=== PATIENT | female | born 1940 | race Caucasian/White ===

== ENCOUNTER 2020-07-03 10:19 | Day surgery (SDC) | payer OTHER, MEDICARE ==
[~2020-07-03] VITALS: Ht 157.5 cm; Wt 77.1 kg
--- NOTE | ~2020-07-03 | O ---
[facility] [place] [address] OPERATIVE REPORT Name: JUDITH BEEBE Room #: 150-6 [facility]..#: [id number] Admission: 07/03/20 Attend Phys: Tashi Orellana MD Discharge: Date of : 36 Report #: [id number] THIS REPORT FOR: cc: Cindi Chan MD, Jayne MD White,Tashi Garnica MD ~ CC: Dr. Paresh Orellana DATE OF SERVICE: 07/03/2020 PREOPERATIVE DIAGNOSIS: Basal cell carcinoma of left upper lid and brow. 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 PROCEDURE: Excision of tumor of left upper lid and brow with frozen section, control of margins and myocutaneous flap repair of defect. SURGEON: Tashi Orellana MD. SEEDLING SORTER: None. ANESTHESIA: MAC. COMPLICATIONS: None. INDICATIONS FOR SURGERY: This pleasant 80-year-old woman has a nodular, ulcerative mass in her left upper brow extending into the left upper lid. The lesion has been previously biopsied and thought to be a basal cell carcinoma. She presents today for excision of the lesion with frozen sections and subsequent repair of the ensuing defect. Informed consent was obtained to include but not limited to the potential risk for loss of vision, bleeding, infection, failure to improve the problem, the potential need for further surgery or treatment. DESCRIPTION OF PROCEDURE: The patient was taken to the operating room where 2% Xylocaine with epinephrine mixed with equal parts 0.75% Marcaine with Wydase was administered transcutaneously to the left upper lid, the left brow, the left side of the forehead and the infratemporal fossa. The patient was subsequently prepped and draped in the usual sterile fashion. A fine tip skin marking pen was then utilized to outline the lesion including 1-2 mm of normal appearing tissue around its margins. The incisions were then [address] [address] OPERATIVE REPORT Name: JUDITH BEEBE Room #: 150-6 [facility].#: [id number] Admission: 07/03/20 Attend Phys: Tashi Orellana MD Discharge: Date of : 36 Report #: [id number] made with a 15C blade. The deeper dissection was accomplished with both sharp and blunt dissection. The lesion was then oriented on a drawing for the waiting pathologist. Hemostasis was achieved in the field with diligent pinpoint monopolar cautery. The pathologist snap froze that specimen and found that the margins were clear and she felt that the lesion was a squamous cell carcinoma rather than a basal cell carcinoma. The defect was inspected and a reconstructive flap outlined laterally. Relaxing incision was made with a 15 blade and hemostasis re-achieved. Myocutaneous flap was then advanced and secured with multiple interrupted buried 5-0 Vicryl sutures deep. The subcutaneous structures were closed with additional 5-0 Vicryl sutures deep. The final closure was accomplished with 6-0 plain gut sutures. Bacitracin ophthalmic ointment was then placed on the wound and the patient subsequently transported to the recovery area having tolerated the procedures well with no anesthetic or operative complications being noted. By: [id number] Tashi Orellana MD /nt
[~2020-07-03 10:19] MED LIST: ALLOPURINOL 10100 M2 PO; FIBER THERAPY500 MG PO; LEVOTHYROXINE50 MCG PO; LIPITOR 40 MG T40 M1 PO; METOPROLOL SUCC25 M1 PO; MULTI VITAMIN1 EACH PO; NEURONTIN 300M300 M2 PO; POTASSIUM CHLO10 MEQ PO; PROTONIX40 M2 PO; TRAMADOL 50 MG50 MG PO; TYLENOL EXTRA500 MG PO
[2020-07-03 11:43] VITALS: BP 163/70
--- NOTE | 2020-07-04 18:06 | PATH ---
[facility] [place] [address] [place] [address] PATHOLOGY RPT PROCEDURE Name: JUDITH BEEBE Room #: DEP [facility].#: [id number] Admission: 07/03/20 Date of : 36 Discharge: 07/03/20 Report #: [id number] Path Case #: [id number] [facility] Accession Number: [id number] . 01 Material submitted: . lid - BCCA LEFT UPPER LID AND BROW - FS. Modifiers: left, upper . 01 Clinical history: . 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 02 Frozen section diagnosis: . FROZEN SECTION DIAGNOSIS: (Dr. Neli Craig) . FROZEN SECTION DIAGNOSIS: FSA1. Skin, left upper lid and brow, excision: - Margins free of invasive carcinoma. . These findings are discussed with Dr. Tashi Orellana in OR6 at [facility] and a written report is placed in the patient's chart. . FROZEN SECTION GROSS DESCRIPTION: The specimen is received fresh from the OR labeled with the patient's name, and "BCC left upper lid and brow" consists of an oriented ellipse of skin measuring 2.6 x 1.1 x 0.6 cm. The specimen is oriented as superior, lateral, inferior and medial. The superior to lateral to inferior margin including its deep margin is inked black, the inferior to medial margin is inked blue including the deep margin, and the medial superior margin is inked green including its deep margin. At this point the specimen is serially sectioned. The midpoint of these specimens, to include the lesion, along with the tips are submitted for frozen section as FSA1, the frozen section remnant is submitted for permanent sections as A1. The unfrozen two pieces of tissue are submitted for permanent section only as A2. (IUV:pit 07/03/2020) . Frozen section performed at [facility], [address], [place] [address]. IZV/QTP . 02 Diagnosis: Skin, left upper lid and brow: - INVASIVE SQUAMOUS CELL CARCINOMA IN A KERATOACANTHOMATOUS LESION. - Margins of resection free of malignancy. (IUV:pit 07/04/2020) [facility] 07/04/2020 1402 Local . 02 [facility] [address] [place] [address] PATHOLOGY RPT PROCEDURE Name: JUDITH BEEBE Room #: DEP [facility] Madeline#: [id number] Admission: 07/03/20 Date of : 36 Discharge: 07/03/20 Report #: [id number] Path Case #: [id number] Comment: No definitive skeletal muscle or perineural invasion is identified within the sections examined. (IUV:pit 07/04/2020) . 02 Electronically signed: . Neli Craig MD, Pathologist NPI- [id number] . 01 Gross description: . SEE FROZEN SECTION FOR GROSS DESCRIPTION: /QTP 07/03/2020 1530 Local . 02 Pathologist provided ICD-10: C44.1291 . 02 CPT . 439962, [id number] Specimen Comment: A courtesy copy of this report has been sent to [phone] Specimen Comment: [phone] Specimen Comment: Report sent to / DR BREWER Performed at: [address], [place] [id number] MD Anthony Prieto MD Phone: [phone] Performed at: [address] [id number] MD Neli Craig MD Phone: [phone]
== END 2020-07-03 14:15 | disposition home or self-care (01) ==
LOC: OR 10:19 → TBA 10:20 → OR 14:15
PROVIDERS: ATTEND Ophthalmology
DX: C44.1291 Squamous cell carcinoma of skin of left upper eyelid, including canthus (principal); I12.9 Hypertensive chronic kidney disease with stage 1 through stage 4 chronic kidney disease, or unspecified chronic kidney disease; N18.30 Chronic kidney disease, stage 3 unspecified; E78.5 Hyperlipidemia, unspecified; K21.9 Gastro-esophageal reflux disease without esophagitis; E03.9 Hypothyroidism, unspecified; M10.9 Gout, unspecified; M19.90 Unspecified osteoarthritis, unspecified site; Z98.890 Other specified postprocedural states; Z79.899 Other long term (current) drug therapy; Z85.820 Personal history of malignant melanoma of skin; Z88.8 Allergy status to other drugs, medicaments and biological substances
CPT/HCPCS: 50010; 50101; 50386; 50398; 51636; 56528; 56531; 62110; 62850; 70005